=== PATIENT | female | born 1985 | race Caucasian/White ===

== ENCOUNTER → 2016-12-29 | Outpatient (CLI) | payer OTHER ==
[~2016-12-29] MED LIST: BENTYL 10 MG CA10 MG PO; LEXAPRO 10 MG T10 M1 PO; NAPROSYN500 MG PO; NORCO 5-325 TA1 EACH PO; ZANTAC 150MG T150 M1 PO; ZOFRAN ODT4 MG PO
== END ==
LOC: ULTRA 07:30
DX: K83.1 Obstruction of bile duct (principal); R94.5 Abnormal results of liver function studies